=== PATIENT | male | born 1980 | race Asian ===

== ENCOUNTER 2020-03-18 07:50 | Inpatient (IN) | payer MEDICARE, MEDICAID ==
[~2020-03-18] VITALS: Ht 154.9 cm; Wt 62.5 kg
[2020-03-18] MEDS ORDERED: traZODone 50mg tablet PO PRN (13:10)
[2020-03-18] MEDS ORDERED: LORazepam 1 MG tablet PO PRN (13:10)
[2020-03-18] MEDS ORDERED: magnesium hydroxide 30ml (MOM) UD suspension PO PRN (13:10)
[2020-03-18] MEDS ORDERED: mag hydrox/Alum hydrox/simeth 30ml oral suspension PO PRN (13:10)
[2020-03-18] MEDS ORDERED: loperamide 2mg capsule PO PRN (13:10)
[2020-03-18] MEDS ORDERED: acetaminophen 325mg tablet PO PRN ×2 (13:10)
[2020-03-18 16:14] VITALS: BP 113/82
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
== END 2020-03-18 18:35 | disposition home or self-care (01) | DRG 885 ==
LOC: ADULT MH 12:52
PROVIDERS: ADMIT Psychiatry & Neurology Psychiatry; ATTEND Psychiatry & Neurology Psychiatry
DX: F29 Unspecified psychosis not due to a substance or known physiological condition (principal)
CPT/HCPCS: 87081; 99285